=== PATIENT | male | born 1960 | race Hispanic/Latino ===

== ENCOUNTER → 2018-05-22 | Outpatient (CLI) | payer OTHER | END | disposition home or self-care (01) | LOC: OIH 13:15 | PROVIDERS: ATTEND Family Medicine | DX: Z13.6 Encounter for screening for cardiovascular disorders (principal) | CPT/HCPCS: 75571 ==

== ENCOUNTER → 2019-01-30 | Outpatient (CLI) | payer OTHER ==
[~2019-01-30] MED LIST: AEC81 PO; ATOR40TA69 PO; ATOR40TA71 PO; FURO20TA6 PO; METF-446 PO; METO25 PO; MULT-1289 PO; PANT40TA PO; TRAM50TA4 PO
== END | disposition home or self-care (01) ==
LOC: SHCH 14:45
PROVIDERS: ATTEND Internal Medicine Cardiovascular Disease
DX: I73.9 Peripheral vascular disease, unspecified (principal)
CPT/HCPCS: 93925

== ENCOUNTER 2024-07-15 12:23 | Emergency (ER) | payer OTHER ==
[~2024-07-15] VITALS: Ht 172.7 cm; Wt 90.7 kg
--- NOTE | 2024-07-15 12:32 | ERN ---
ED Note History of Present Illness Stated Complaint: SOB Chief Complaint: Shortness of Breath Time Seen by MD: 12:24 Dictation: PATIENT IS A 63-YEAR-OLD MALE COMING IN TODAY WITH SHORTNESS A BREATH AND SEVERE LEFT LATERAL POSTERIOR CHEST PAIN ONSET LAST NIGHT. HE STATES HE WAS AT HOME WHEN HE SUSTAINED A SAME LEVEL TRIP FALL LANDED ON HIS BACK. HE STATES THE PAIN DOES NOT RADIATE. PATIENT DOES HAVE A HISTORY OF CAD, CABG, DIABETES, HYPERTENSION, CHOLESTEROL. TAKEN NOTHING PRIOR TO ARRIVAL FOR PAIN. Allergies: Coded Allergies: No Known Allergies (Unverified Allergy, Unknown, 10/24/18) Home Meds Active Scripts Tramadol Hcl (Tramadol HCl) 50 Mg Tablet, 50 MG PO Q6H PRN for PAIN LEVEL 4 TO 6 for 5 Days, #20 TAB Prov:PREM KIRK Jr., MD 10/29/18 Pantoprazole Sodium (Protonix) 40 Mg Tablet.dr, 40 MG PO DAILY for 30 Days, #30 TAB Prov:PREM KIRK Jr., MD 10/29/18 Metoprolol Tartrate (Lopressor) 25 Mg Tab, 25 MG PO BID for 30 Days, #60 TAB Prov:PREM KIRK Jr., MD 10/29/18 Furosemide (Lasix 20Mg Tab) 20 Mg Tablet, 20 MG PO DAILY for 30 Days, #30 TAB Prov:PREM KIRK Jr., MD 10/29/18 Atorvastatin Calcium (LIPITOR) 40 Mg Tablet, 40 MG PO HS for 30 Days, #30 TAB Prov:PREM KIRK Jr., MD 10/29/18 Aspirin (ASPIRIN 81 MG ECTAB) 81 Mg Ectab, 81 MG PO DAILY for 30 Days, #30 TAB.EC Prov:PREM KIRK Jr., MD 10/29/18 Reported Medications Multivit-Min/FA/Lycopen/Lutein (Centrum Silver Men Tablet) 1 Each Tablet, 1 EACH PO DAILY, TAB 10/24/18 Aspirin (ASPIRIN 81 MG ECTAB) 81 Mg Ectab, 81 MG PO DAILY, TAB.EC 10/24/18 Atorvastatin Calcium (Atorvastatin Calcium) 40 Mg Tablet, 40 MG PO HS, TAB 10/24/18 Metformin HCl (Metformin HCl) 1,000 Mg Tablet, 1000 MG PO Q12H, TAB 10/24/18 Past Medical History PSYCH History: no pertinent psych hx RN Note Reviewed/Agreed w/PFSH: Yes Review of System Dictation CONSTITUTIONAL: NEGATIVE EXCEPT FOR HPI HEAD/FACE: NEGATIVE EXCEPT FOR HPI EENT: NEGATIVE EXCEPT FOR HPI RESPIRATORY: NEGATIVE EXCEPT FOR HPI SHORTNESS A BREATH, LEFT POSTERIOR CHEST PAIN TENDERNESS GASTROINTESTINAL/ABDOMINAL: NEGATIVE EXCEPT FOR HPI GENITOURINARY: NEGATIVE EXCEPT FOR HPI MUSCULOSKELETAL: NEGATIVE EXCEPT FOR HPI INTEGUMENTARY: NEGATIVE EXCEPT FOR HPI ECCHYMOSIS TO LEFT POSTERIOR LATERAL CHEST WALL NEUROLOGICAL/PSYCH: NEGATIVE EXCEPT FOR HPI HEMATOLOGIC/LYMPHATIC: NEGATIVE EXCEPT FOR HPI ALL SYSTEMS NEGATIVE, EXCEPT NOTED ABOVE. 13 POINT REVIEW OF SYSTEMS ASSESSED AND ALL NEGATIVE EXCEPT FOR ABOVE. Initial Vital Sign VS Vital Signs Date Time Temp Pulse Resp B/P (MAP) Pulse Ox O2 Delivery O2 Flow Rate FiO2 07/15/24 12:23 98.1 107 37 157/106 97 Room Air* 0 21 Physical Exam Dictation VITAL SIGNS REVIEWED GENERAL APPEARANCE: ALERT, ORIENTED X 3, SEVERE ACUTE DISTRESS, WELL DEVELOPED, NOURISHED. HEAD AND FACE: NON-TRAUMATIC. EYES: PERRL, PINK CONJUNCTIVAS, EYELID NO TRAUMA, ANTERIOR CHAMBER WITH ARCUS SENILIS. EARS: PINNAS INTACT AND NO SIGNS OF TRAUMA OR ERYTHEMA EAR CANALS CLEAR AND NO DISCHARGE TM NO ERYTHEMA NOSE: NO DISCHARGE, NO BLEEDING. OROPHARYNX: MOUTH NORMAL, TONGUE PINK, PHARYNX CLEAR,NO ERYTHEMA, TONSILS NO EXUDATES, NO ABSCESSES NOTED, MUCOUS MEMBRANE MOIST NECK: SUPPLE, NON-TENDER, NO THYROMEGALY, NO MASSES, NO JVD, NO BRUITS BREAST:DEFERRED CHEST:NO TENDERNESS, NO CREPITUS, NO PARADOXICAL MOVEMENT, NO RETRACTIONS LUNGS:CLEAR, WELL-VENTILATED, SYMMETRIC, NO RALES, NO WHEEZING, NO RHONCHI, NO STRIDOR, GOOD BREATH SOUNDS BILATERALLY ECCHYMOSIS TO LEFT LATERAL POSTERIOR CHEST WALL HEART: REGULAR RATE, REGULAR RHYTHM, NO MURMUR, NO GALLOPS VASCULAR: NO PERIPHERAL EDEMA, ABDOMEN: SOFT, POSITIVE BOWEL SOUNDS, NONDISTENDED, NO GUARDING, NONTENDER, NO REBOUND, NO MASSES NO HEPATOMEGALY, NO SPLENOMEGALY, NO CORNELIUS'S SIGN, NO HERNIAS. RECTAL: DEFERRED GENITAL: DEFERRED NEUROLOGICAL: NORMAL SPEECH, MOTOR FUNCTION INTACT, SENSORY FUNCTION INTACT MUSCULOSKELETAL: NECK NONTENDER, FULL RANGE OF MOTION, BACK NONTENDER, FULL RANGE OF MOTION, EXTREMITIES: NONTENDER, FULL RANGE OF MOTION SKIN: COLOR PINK, DRY, NO TURGOR, NO RASH, NO LACERATIONS, NO ABRASIONS, NO CONTUSIONS. LYMPHATIC: DEFERRED Results (Laboratory/Radiology) Laboratory/Radiology Laboratory Tests Test 07/15/24 12:53 White Blood Count 10.9 K/uL (4.8-10.8) H Red Blood Count 5.22 MIL/uL (4.50-6.20) Hemoglobin 16.9 g/dL (14.0-18.0) Hematocrit 49.4 % (42-54) Mean Corpuscular Volume 94.6 fL (79-99) Mean Corpuscular Hemoglobin 32.4 pg (27.0-33.0) Mean Corpuscular Hemoglobin Concent 34.2 g/dL (32.0-36.0) Red Cell Distribution Width 12.5 % (11.0-15.5) Platelet Count 223 K/uL (130-400) Mean Platelet Volume 8.9 fL (7.5-10.5) Immature Granulocyte % (Auto) 0.5 % (0-1) Neutrophils (%) (Auto) 82.8 % (40.0-77.0) H Lymphocytes (%) (Auto) 11.4 % (21.0-51.0) L Monocytes (%) (Auto) 5.0 % (3.0-13.0) Eosinophils (%) (Auto) 0.0 % (0.0-8.0) Basophils (%) (Auto) 0.3 % (0.0-5.0) Neutrophils # (Auto) 9.0 K/uL (1.8-7.7) H Lymphocytes # (Auto) 1.3 K/uL (1.0-4.8) Monocytes # (Auto) 0.6 K/uL (0.1-1.0) Eosinophils # (Auto) 0.00 K/uL (0.00-0.70) Basophils # (Auto) 0.03 K/uL (0.00-0.20) Absolute Immature Granulocyte (auto 0.05 K/uL (0-1) Nucleated Red Blood Cells 0.0 % (0.0-0.19) Sodium Level 139 mmol/L (136-145) Potassium Level 4.2 mmol/L (3.5-5.1) Chloride Level 101 mmol/L (101-111) Carbon Dioxide Level 23 mmol/L (21-32) Blood Urea Nitrogen 13 mg/dL (7-18) Creatinine 1.0 mg/dL (0.5-1.3) Glomerular Filtration Rate Calc 85 mL/min (>90) Random Glucose 102 mg/dL (70-105) Total Calcium 8.7 mg/dL (8.5-10.1) Troponin I High Sensitivity < 4 ng/L (4-75) L REASON: LEFT LATERAL POSTERIOR CHEST WALL PAIN TENDERNESS STATUS POST FALL YESTERDA TECHNIQUE: 6 views were obtained. FINDINGS: There are nondisplaced fractures of the left posterolateral ninth and 10th ribs. Ribs appear otherwise unremarkable. PA chest x-ray shows clear lungs. Heart size is normal. There is been previous median sternotomy. IMPRESSION: 1. Nondisplaced fracture of the left ninth and 10th posterolateral ribs. Labs Reviewed?: Yes EKG Comment: EKG SINUS TACHYCARDIA/HEART RATE 106/AXIS NORMAL/NO ECTOPY ED Course ED Course Orders Procedure Category Date Status Time 12 Lead Ekg Tracing- EKG 07/15/24 Logged Technical 12:24 Ribs Uni Lt W Pa RAD 07/15/24 Resulted Chest 3+Vws 12:28 Cbc With Differential LAB 07/15/24 Complete 12:28 Troponin I High LAB 07/15/24 Complete Sensitivity 12:28 Ketorolac PHA 07/15/24 Complete Tromethamine 30mg/Ml 12:30 Morphine 4mg Syg PHA 07/15/24 Complete (Morphine 4mg Syg) 12:30 Ondansetron 4mg Inj PHA 07/15/24 Complete (Zofran 4mg Inj) 12:30 Basic Metabolic Panel LAB 07/15/24 Complete 12:28 Current Medications Medications (Trade) Dose Ordered Sig/Hill Route PRN Reason Start Time Stop Time Status Last Admin Dose Admin Ketorolac Tromethamine (toRADol) 30 mg ONCE ONCE IVP 07/15/24 12:30 07/15/24 12:31 DC 07/15/24 13:15 Morphine Sulfate (morPHINE 4MG SYG) 4 mg ONCE ONCE IVP 07/15/24 12:30 07/15/24 12:31 DC 07/15/24 13:16 Ondansetron HCl (zoFRAN 4MG INJ) 4 mg ONCE ONCE IVP 07/15/24 12:30 07/15/24 12:31 DC 07/15/24 13:15 Vital Signs Date Time Temp Pulse Resp B/P (MAP) Pulse Ox O2 Delivery O2 Flow Rate FiO2 07/15/24 12:23 98.1 107 37 157/106 97 Room Air 0 07/15/24 12:23 98.1 107 37 157/106 97 Room Air* 0 21 1428, PATIENT STATES PAIN MARKEDLY IMPROVED AFTER TORADOL AND MORPHINE. HE WILL BE GIVEN ADDITIONAL MADE MEDICINE PRIOR TO DISCHARGE HOME IS WHERE THE ONLY SIGNIFICANT FINDING FOR THIS VISIT IS NONDISPLACED 9. AND 10 RIBS LEFT. HEART Score Response (Comments) Value History: Low suspicion (0) 0 Age: 45-65yrs (+1) 1 Risk Factors: 3+ risk factors (+2) 2 Initial Troponin: Normal limit (0) 0 Total 3 Medical Decision Making MDM MDM: DIFFERENTIAL DIAGNOSIS: RIB FRACTURE/PNEUMOTHORAX/BRONCHITIS/PNEUMONIA/ACS RATIONALE: TESTS CONSIDERED AND ORDERED SECONDARY TO SHARED DECISION MAKING INCLUDE: EKG/LABS/RADIOLOGY PREVIOUS OUTSIDE RECORDS REVIEWED: OLD ER VISITS. REVIEWED RISK OF COMPLICATION AND/OR MORBIDITY OR MORTALITY OF PATIENT MANAGEMENT: MILD MEDICATIONS-PER MEDICATION RECONCILIATION SEE NURSE'S NOTES NEED FOR HOSPITALIZATION: PATIENT DOES NOT MEET CRITERIA FOR HOSPITALIZATION. NO NEED FOR EMERGENCY MAJOR/MINOR SURGERY: NO THERE ARE NO SOCIAL CONCERNS WITH THIS PATIENT. PRESCRIPTION DRUG MANAGEMENT TYLENOL WITH CODEINE PRESCRIPTIONS WILL INCLUDE SYMPTOMATIC CARE PATIENT'S PRIOR EXTERNAL MEDICAL RECORDS FROM OTHER ER VISITS WERE REVIEWED BY ME INDICATED. PRIOR TESTING AND RESULTS FROM PREVIOUS VISITS WERE REVIEWED. PRIOR TESTS WERE TAKEN INTO ACCOUNT WITH MEDICAL DECISION MAKING AND RESOURCE UTILIZATION, INDEPENDENT HISTORIAN/HISTORIANS WERE USED TO OBTAIN COMPLETE MEDICAL HISTORY. I INDEPENDENTLY INTERPRETED THE TEST THAT WERE PERFORMED, RESULTS WERE REVIEWED BY ME AND CONSIDERED FINDINGS ON RADIOLOGY IF ORDERED. MEDICAL MANAGEMENT AND EXAMINATION INTERPRETATION DISCUSSIONS WERE HAD BY ME WITH OTHER QUALIFIED HEALTHCARE PROFESSIONALS INDICATED FOR THE PATIENT'S CARE. DX & DISP Disposition: Discharge Departure Impression: Primary Impression: Multiple rib fractures Additional Impression: Fall Condition: Stable Scripts Acetaminophen with Codeine (Acetaminophen-Cod #3 Tablet) 300 Mg-30 Mg Tablet 1 TAB PO Q4H PRN for MODERATE TO SEVERE PAIN, #30 TAB 0 Refills Prov: SHARON BAILEY IMPORT EXPORT AGENT 07/15/24 Additional Instructions: Follow-up with primary care provider in 1 to 2 days. Take medications as directed here in the emergency room. Okay to continue home medications unless otherwise discussed during your visit in the emergency room today. Return to your nearest emergency room if symptoms worsen or if there is no improvement. Call 911 if you need immediate assistance. Take Tylenol or Motrin [id number] as needed and if no contraindications are present. Increase oral hydration. A wound culture or urine culture was ordered here in the emergency room department please follow-up with primary care provider and advise them to get repeat ports from our facility. If you had any Rafael wrap/splints that were applied here, please do not remove them until you see your primary care or specialty. May take Tylenol with codeine two tablets every 6 hours as needed for severe pain. Practice deep breathing exercises after your pain is relieved with Tylenol with codeine. Follow up with your primary care doctor in 1-2 days. Activity as tolerated. Referrals: ROSIBEL GARDNER MD (PCP) Time of Disposition: 14:29 I have reviewed the case, and I agree with, Diagnosis and Plan SHARON BAILEY NP Jul 15, 2024 12:32
[2024-07-15 13:01] LABS: BASOPHILS # (AUTO) 0.03 K/uL (0.00-0.20); BASOPHILS % (AUTO) 0.3 % (0.0-5.0); HEMATOCRIT 49.4 % (42-54); IMMATURE GRANULOCYTE ABSOLUTE 0.05 K/uL (0-1); LYMPHOCYTES # (AUTO) 1.3 K/uL (1.0-4.8); LYMPHOCYTES % (AUTO) 11.4 % (21.0-51.0); MEAN CORPUSCULAR HEMOGLOBIN 32.4 pg (27.0-33.0); MEAN CORPUSCULAR HGB CONC 34.2 g/dL (32.0-36.0); MEAN CORPUSCULAR VOLUME 94.6 fL (79-99); MONOCYTES # (AUTO) 0.6 K/uL (0.1-1.0); NEUTROPHILS % (AUTO) 82.8 % (40.0-77.0); PLATELET COUNT (AUTO) 223 K/uL (130-400); RED BLOOD CELL COUNT(AUTO) 5.22 MIL/uL (4.50-6.20); RED CELL DISTRIBUTION WIDTH 12.5 % (11.0-15.5); WHITE BLOOD COUNT (AUTO) 10.9 K/uL (4.8-10.8)
[2024-07-15] MEDS: ketOROlac 30MG VIAL (30MG/ML) IVP ONE (13:15)
[2024-07-15] MEDS: ondanSETRON 4MG INJ IVP ONE (13:15)
[2024-07-15] MEDS: morPHINE 4 MG SYG IVP ONE (13:16)
[2024-07-15 13:20] LABS: POTASSIUM 4.2 mmol/L (3.5-5.1)
--- NOTE | 2024-07-15 14:09 | HMCIMG ---
RIBS UNI LT W PA CHEST 3+VWS REASON: LEFT LATERAL POSTERIOR CHEST WALL PAIN TENDERNESS STATUS POST FALL YESTERDA TECHNIQUE: 6 views were obtained. FINDINGS: There are nondisplaced fractures of the left posterolateral ninth and 10th ribs. Ribs appear otherwise unremarkable. PA chest x-ray shows clear lungs. Heart size is normal. There is been previous median sternotomy. IMPRESSION: 1. Nondisplaced fracture of the left ninth and 10th posterolateral ribs.
[2024-07-15] MEDS ORDERED: ACET-2079 PO (14:31)
[2024-07-15] MEDS: dexaMETHasone SOD PHOSPHATE 4 MG/ML 1ML VIAL IVP ONE (14:49)
[2024-07-15] MEDS: acetaMINOPHEN WITH coDEINE 1 TAB TAB PO ONE (14:50)
[2024-07-15 15:19] VITALS: BP 139/92; PULSE 95; RESP 20; TEMP 98.1; O2SAT 97
--- NOTE | 2024-07-16 05:24 | EKG ---
[facility] Test Date: 2024-07-15 Test Time: 12:27:07 Pat Name: JERZY SOTO Department: ED Room: Gender: M Mirror Silverer: [id number] : 1960 Requested By: ALEX MACHUCA Order Number: [id number] Reading MD: Jerzy Mane Measurements Intervals [place] Rate: 106 P: 50 NV: 184 QRS: 0 QRSD: 95 T: 45 QT: 318 QTc: 423 Interpretive Statements Sinus tachycardia Compared to ECG 10/26/2018 15:10:28 Sinus rhythm no longer present ST (T wave) deviation no longer present Electronically Signed On 07-17-2024 17:22:51 COMM[employer]ITY PL[employer]NER by Jerzy Mane Please click the below link to view image of tracing.
== END 2024-07-15 15:25 | disposition home or self-care (01) ==
LOC: EDH 12:23
DX: S22.42XA Multiple fractures of ribs, left side, initial encounter for closed fracture (principal); Z79.82 Long term (current) use of aspirin; Z79.899 Other long term (current) drug therapy; W18.39XA Other fall on same level, initial encounter; Y93.89 Activity, other specified; Y92.89 Other specified places as the place of occurrence of the external cause; Y99.8 Other external cause status
CPT/HCPCS: 99285; 96374; 96375; 84484; 80048; 85025; 36415; 71101; 93005; J1100; J2405; J2270; J1885; 99284